=== PATIENT | male | born 1995 | race Caucasian/White ===

== ENCOUNTER 2019-04-02 16:41 | Emergency (ER) | payer OTHER ==
--- NOTE | 2019-04-02 17:49 | RAD REPORT ---
EXAM DESCRIPTION: RAD -Hand Left 3 View - 04/02/2019 5:43 pm CLINICAL HISTORY: Left hand pain status post injury FINDINGS: No fracture or dislocation is seen.
--- NOTE | 2019-04-02 17:58 | RAD REPORT ---
EXAM DESCRIPTION: RAD - Hand Right 3 View - 04/02/2019 5:43 pm CLINICAL HISTORY: Right hand pain status post injury FINDINGS: No fracture is seen Flexion deformity of the fifth DIP joint. There is subtle widening of the posteromedial aspect of the fifth DIP joint . There may be an injury to the tendon/ligament. If clinically indicated further evaluation with MRI may helpful
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
[2019-04-02 18:42] VITALS: TEMP 98
[2019-04-02 18:52] VITALS: BP 126/85; O2SAT 100
== END 2019-04-02 18:27 | disposition home or self-care (01) ==
LOC: ER 16:41
DX: M20.011 Mallet finger of right finger(s) (principal)
CPT/HCPCS: 99283